=== PATIENT | female | born 1970 | race Caucasian/White ===

== ENCOUNTER 2017-12-15 09:29 | Emergency (ER) | payer MEDICARE, MEDICAID ==
[~2017-12-15] VITALS: Ht 154.9 cm; Wt 94.2 kg
[~2017-12-15 09:29] MED LIST: BENA10TA9 PO; CLON1TAB4 PO; HYDR-569 PO; LAMO25TA62 PO; NITR100C6 PO; PHEN-824 PO; ROPI1TAB4 PO
[2017-12-15 09:44] VITALS: BP 137/84
[2017-12-15 10:07] LABS: CLARITY,URINE CLOUDY (Clear); COLOR,URINE ORANGE (Yellow); URINE HCG NEGATIVE (NEG)
[2017-12-15 10:08] LABS: UA COLLECTION TYPE CLN CATCH MIDSTREAM
[2017-12-15 10:13] LABS: BACTERIA,URINE 2+ /HPF (Neg); SQUAMOUS EPITHELIAL CELL,UR MODERATE /LPF (FEW); WBC CLUMPS,URINE MANY /HPF (NEGATIVE); WBC,URINE 50-100 /HPF (0-4)
[2017-12-15] MEDS ORDERED: PHEN-824 PO (10:49)
[2017-12-15] MEDS ORDERED: NITR100C6 PO (10:49)
== END 2017-12-15 11:06 | disposition home or self-care (01) ==
LOC: ER 09:29
DX: G89.29 Other chronic pain (principal); N39.0 Urinary tract infection, site not specified; I10 Essential (primary) hypertension; F15.10 Other stimulant abuse, uncomplicated; F12.10 Cannabis abuse, uncomplicated; J45.909 Unspecified asthma, uncomplicated; Z98.890 Other specified postprocedural states
CPT/HCPCS: 81001; 81025; 87088; 87186; 99284

== ENCOUNTER 2018-10-22 13:31 | Emergency (ER) | payer MEDICARE, MEDICAID ==
[~2018-10-22] VITALS: Ht 154.9 cm; Wt 95.0 kg
[~2018-10-22 13:31] MED LIST changes: +CLON-371 PO; -CLON1TAB4 PO; +HYDR-4383 PO; -HYDR-569 PO
[2018-10-22 13:44] VITALS: BP 151/96
== END 2018-10-22 16:35 | disposition left against medical advice (07) ==
LOC: ER 13:32
DX: H92.02 Otalgia, left ear (principal); R09.89 Other specified symptoms and signs involving the circulatory and respiratory systems

== ENCOUNTER 2018-10-24 10:56 | Emergency (ER) | payer MEDICARE, MEDICAID ==
[~2018-10-24] VITALS: Ht 154.9 cm; Wt 85.0 kg
[2018-10-24 11:23] VITALS: BP 159/106
[2018-10-24] MEDS ORDERED: CLAR500T PO (12:06)
== END 2018-10-24 12:30 | disposition home or self-care (01) ==
LOC: ER 10:57
DX: J32.9 Chronic sinusitis, unspecified (principal); H65.92 Unspecified nonsuppurative otitis media, left ear; I10 Essential (primary) hypertension; J45.909 Unspecified asthma, uncomplicated; M19.90 Unspecified osteoarthritis, unspecified site; F41.9 Anxiety disorder, unspecified; F32.9 Major depressive disorder, single episode, unspecified; F12.10 Cannabis abuse, uncomplicated; F15.10 Other stimulant abuse, uncomplicated; Z86.19 Personal history of other infectious and parasitic diseases; Z86.14 Personal history of Methicillin resistant Staphylococcus aureus infection; Z88.0 Allergy status to penicillin; Z79.899 Other long term (current) drug therapy
CPT/HCPCS: 99283